=== PATIENT | female | born 1985 | race African-American/Black ===

== ENCOUNTER 2019-09-23 16:25 | Emergency (ER) | payer OTHER ==
[2019-09-23 16:51] VITALS: TEMP 98.4; BMI 25.7
--- NOTE | 2019-09-23 16:56 | PDOC ---
History of Present Illness - General Chief Complaint: Eye Problem Stated Complaint: EYE PROBLEM Time Seen by Provider: 09/23/19 16:55 History Source: Patient Exam Limitations: No Limitations Past History - Travel Traveled outside of the country in the last 30 days: No Close contact w/someone who was outside of country & ill: No - Past Medical History Allergies/Adverse Reactions: Allergies Allergy/AdvReac Type Severity Reaction Status Date / Time No Known Allergies Allergy Verified 09/23/19 16:51 Home Medications: Ambulatory Orders Amoxicillin/Potassium Clav [Augmentin 875-125 Tablet] 1 each PO Q12H 09/23/19 COPD: No Other medical history: DENIES - Immunization History Immunization Up to Date: Yes - Psycho Social/Smoking Cessation Hx Smoking Status: No Smoking History: Current every day smoker Have you smoked in the past 12 months: Yes Number of Cigarettes Smoked Daily: 2 Information on smoking cessation initiated: Yes 'Breaking Loose' booklet given: 10/24/15 Hx Alcohol Use: No Drug/Substance Use Hx: No Substance Use Type: None Hx Substance Use Treatment: No Review of Systems - Review of Systems Able to Perform ROS?: Yes Comments:: 09/23/19 19:14 CONSTITUTIONAL: Absent: fever, chills, diaphoresis, generalized weakness, malaise, loss of appetite HEENT: Present: Left eye swelling, facial pain, nasal congestion. Absent: rhinorrhea, nasal congestion, throat pain, throat swelling, difficulty swallowing, mouth swelling, ear pain, eye pain, visual Changes CARDIOVASCULAR: Absent: chest pain, loss of consciousness, palpitations, irregular heart rate, peripheral edema RESPIRATORY: Absent: cough, shortness of breath, dyspnea with exertion, orthopnea, wheezing, stridor, hemoptysis GASTROINTESTINAL: Absent: abdominal pain, abdominal distension, nausea, vomiting, diarrhea, constipation, melena, hematochezia GENITOURINARY: Absent: dysuria, frequency, urgency, hesitancy, hematuria, flank pain, genital pain MUSCULOSKELETAL: Absent: myalgia, arthralgia, joint swelling SKIN: Absent: rash, itching, pallor HEMATOLOGIC/IMMUNOLOGIC: Absent: easy bleeding, easy bruising, lymphadenopathy, frequent infections ENDOCRINE: Absent: unexplained weight gain, unexplained weight loss, heat intolerance, cold intolerance NEUROLOGIC: Absent: headache, focal weakness or paresthesias, dizziness, unsteady gait, seizure, mental status changes, bladder or bowel incontinence PSYCHIATRIC: Absent: anxiety, depression, suicidal or homicidal ideation, hallucinations. Is the patient limited Kyrgyz proficient: No *Physical Exam - Vital Signs Last Vital Signs Temp Pulse Resp BP Pulse Ox 98.4 F 85 17 127/80 100 09/23/19 16:48 09/23/19 16:48 09/23/19 16:48 09/23/19 16:48 09/23/19 16:48 - Physical Exam 09/23/19 19:14 GENERAL: Well developed, well nourished. Awake and alert. No acute distress. HEAD: Normal with no signs of trauma. EYES: Pupils equal, round and reactive to light, extraocular movements intact, however pt reports pain with movement. Edema to the upper and lower lid extending above the upper lid and below the lower lid. Sclera anicteric, conjunctiva clear. ENT: (+) nasal congestion or rhinorrhea. (+) L maxillary sinus tenderness. Mucous membranes are moist. No tonsillar erythema, exudate or edema. Uvula is midline. No TM bulging, dullness or erythema NECK: Supple. Full ROM. No JVD. Carotid pulses 2+ and symmetric, without bruits. No thyromegaly. No lymphadenopathy. CARDIOVASCULAR: Regular rate and rhythm. No murmurs, rubs, or gallops. Distal pulses are 2+ and symmetric. PULMONARY: No evidence of respiratory distress. Lungs clear to auscultation bilaterally. No wheezing, rales or rhonchi. MUSCULOSKELETAL Normal range of motion at all joints. No bony deformities or tenderness. EXTREMITIES: No cyanosis. No clubbing. No edema. No calf tenderness. SKIN: Warm and dry. Normal capillary refill. No rashes. No jaundice. NEUROLOGICAL: Alert, awake, appropriate. Cranial nerves 2-12 intact. No deficits to light touch and temperature in face, upper extremities and lower extremities. No motor deficits in the in face, upper extremities and lower extremities. Normoreflexic in the upper and lower extremities. Normal speech. Toes are down- going bilaterally. Gait is normal without ataxia. PSYCHIATRIC: Cooperative. Good eye contact. Appropriate mood and affect. ED Treatment Course - LABORATORY CBC & Chemistry Diagram: 09/23/19 18:08 09/23/19 18:08 Medical Decision Making - Medical Decision Making 09/23/19 19:26 The patient is a 34-year-old female with no past medical history who presents to the ER today with left eye swelling and nasal congestion. The patient states her symptoms began approximately 2 days ago. She was seen and evaluated at an urgent care and placed on Augmentin for her symptoms. When she woke up this morning the swelling was worse so she went to the ears nose and throat doctor for evaluation. She states that she was evaluated by her ears nose and throat doctor who told her to come to the ER for orbital cellulitis with a superimposed sinus infection. She states that she has had the sinus infection for approximately 3 months with no improvement. She states that it is painful to move her eye and she feels like she has blurred vision in the left eye. Denies fevers, chills, difficulty breathing, shortness of breath, dizziness, lightheadedness, diplopia. A/P: Orbital cellulitis/sinus infection On exam the left upper and lower eyelids are edematous except with swelling extending past both the upper and lower eyelids. No proptosis noted at this time. Labs, blood cultures ordered. Vancomycin, Zosyn ordered. Decadron given. CT facial bones given to rule out orbital cellulitis/abscess. Anticipate transfer to [facility] as we do not have ophthalmology or ears nose and throat on-call at this time. Patient is amenable to transfer. Reevaluate 09/23/19 19:57 CT facial bones reads: Severe pansinusitis is noted. Focal osseous erosion is seen involving several small areas along the superior and superior medial aspects of the left orbital roof due to left frontal sinus disease. There is an associated small amount of intraorbital extension of inflammatory material into the superior aspect of the left orbit. Mild linear soft tissue stranding is also visualized within the left orbit superiorly. Left periorbital/ preseptal soft tissue edema is noted. There are small areas of focal dehiscence /attenuation involving the left ethmoidal roof. Patient with both severe sinusitis/periorbital cellulitis. Transfer to [facility] initiated. Pending callback. 09/23/19 20:21 Pt accepted ED to ED transfer to Dr. Dukes Case also discussed with ENT Dr. Cagle Discharge - Discharge Information Problems reviewed: Yes Clinical Impression/Diagnosis: Orbital cellulitis on left Sinusitis Qualifiers: Sinusitis location: frontal Chronicity: acute Recurrence: non-recurrent Qualified Code(s): J01.10 - Acute frontal sinusitis, unspecified Disposition: TRANSFER ACUTE CARE/OTHER HOSP - Follow up/Referral Referrals: Tigist Nuno MD [Primary Care Provider] - - Patient Discharge Instructions - Post Discharge Activity - Transfer to Acute Care Facility Receiving Facility Name: [facility] Accepting Physician:: Dr. Dukes
[2019-09-23] MEDS ORDERED: VANCOMYCIN 1 GM in D5W (PRE-DOCKED) 1,000 MG/250 ML IVPB ONE (17:35)
[2019-09-23] MEDS ORDERED: PIPERACILLIN/TAZOB 3.375 GM 3.375 GM in DEXTROSE 5%-WATER - 50 ML IVPB ONE (17:36)
[2019-09-23] MEDS ORDERED: DEXAMETHASONE SOD PHOSPHATE 10 MG/1 ML VIAL IVPUSH ONE (17:37)
[2019-09-23] MEDS ORDERED: ACETAMINOPHEN 1000 MG/100 ML VIAL (NON FORMULARY) IVPB ONE (17:37)
[2019-09-23] MEDS ORDERED: ACETAMINOPHEN INJECTION 100 ML IVPB ONE (17:43)
[2019-09-23] MEDS ORDERED: DEXAMETHASONE SOD PHOSPHATE 10 MG/1 ML VIAL ONE (17:43)
[2019-09-23] MEDS ORDERED: PIPERACILLIN/TAZOB 3.375 GM 3.375 GM/50 ML BAG IVPB ONE (17:44)
[2019-09-23] MEDS ORDERED: VANCOMYCIN 1 GRAM (PRE-DOCKED) 1,000 MG/250 ML BAG IVPB ONE (17:44)
[2019-09-23 19:08] LABS: BASO % 0.7 % (0-2.0); EOS % 5.1 % (0-4.5); HEMATOCRIT 42.6 % (32.4-45.2); HEMOGLOBIN 13.8 GM/dL (10.7-15.3); LYMPH % 21.3 % (8-40); MCH 32.3 pg (25.7-33.7); MCHC 32.5 g/dl (32.0-36.0); MEAN CELL VOLUME 99.2 fl (80-96); MONO % 4.2 % (3.8-10.2); NEUT % 68.7 % (42.8-82.8); PLATELET COUNT 219 K/MM3 (134-434); RBC 4.29 M/mm3 (3.60-5.2); RDW 12.8 % (11.6-15.6); WHITE BLOOD COUNT 8.7 K/mm3 (4.0-10.0)
[2019-09-23 19:26] LABS: PROTHROMBIN TIME (PATIENT) 11.8 SEC (9.7-13.0)
[2019-09-23 19:44] LABS: ALBUMIN 3.9 g/dl (3.4-5.0); BILIRUBIN,TOTAL 0.7 mg/dL (0.2-1); CALCIUM 9.3 mg/dL (8.5-10.1); CREATININE 0.6 mg/dL (0.55-1.3); TOT PROT 7.6 g/dl (6.4-8.2)
[2019-09-23 23:02] VITALS: BP 123/76; PULSE 73
--- NOTE | 2019-09-24 14:00 | EKG ---
Test Reason : Blood Pressure : / mmHG Vent. Rate : 078 BPM Atrial Rate : 078 BPM P-R Int : 150 ms QRS Dur : 072 ms QT Int : 366 ms P-R-T Axes : 059 078 065 degrees QTc Int : 417 ms NORMAL SINUS RHYTHM POSSIBLE LEFT ATRIAL ENLARGEMENT BORDERLINE ECG WHEN COMPARED WITH ECG OF 11-AUG-2012 15:38, NO SIGNIFICANT CHANGE WAS FOUND Confirmed by DEVON ALICEA MD ([id number]) on 09/24/2019 1:59:58 PM Referred By: Confirmed By:DEVON ALICEA MD
== END 2019-09-23 23:02 | disposition short-term general hospital (02) ==
LOC: JER 16:25
PROC: 3E03329 Introduction of Other Anti-infective into Peripheral Vein, Percutaneous Approach (ICD-10-PCS; principal; 2019-09-23)
PROC: 3E033NZ Introduction of Analgesics, Hypnotics, Sedatives into Peripheral Vein, Percutaneous Approach (ICD-10-PCS; 2019-09-23)
DX: J01.10 Acute frontal sinusitis, unspecified (principal); F17.210 Nicotine dependence, cigarettes, uncomplicated
CPT/HCPCS: 36415; 70486-TC; 80053; 85025; 85610; 87040; 93005; 93010; 99285-25; J0131; J1100

== ENCOUNTER 2021-07-21 08:30 | Emergency (ER) | payer OTHER ==
[2021-07-21 08:56] VITALS: BP 103/70; PULSE 91; TEMP 98.6; BMI 26.6
[2021-07-24 17:08] LABS: SARS-CoV-2 NAA Detected (Not Detected)
== END 2021-07-21 10:00 | disposition home or self-care (01) ==
LOC: JER 08:30
DX: J11.1 Influenza due to unidentified influenza virus with other respiratory manifestations (principal)
CPT/HCPCS: 99283-25; C9803; U0003; U0005

== ENCOUNTER 2023-08-05 06:33 | Emergency (ER) | payer OTHER ==
[2023-08-05 06:42] VITALS: BMI 28.0
[2023-08-05] MEDS ORDERED: KETOROLAC TROMETHAMINE 30 MG/1 ML VIAL IM ONE (08:01)
[2023-08-05] MEDS ORDERED: LIDOCAINE 5% TOPICAL PATCH TP ONE (08:02)
[2023-08-05] MEDS ORDERED: KETOROLAC TROMETHAMINE 30 MG/1 ML VIAL ONE (08:22)
[2023-08-05] MEDS ORDERED: LIDOCAINE 4% PATCH TP ONE ×2 (08:22→08:24)
[2023-08-05 09:01] VITALS: BP 91/65; PULSE 79; RESP 18; TEMP 99.8
[2023-08-05] MEDS ORDERED: LIDOCAINE PATCH REMOVAL MC SCH ×2 (22:00)
== END 2023-08-05 09:05 | disposition home or self-care (01) ==
LOC: JER 06:33
PROC: 3E0233Z Introduction of Anti-inflammatory into Muscle, Percutaneous Approach (ICD-10-PCS; principal; 2023-08-05)
DX: M25.511 Pain in right shoulder (principal)
CPT/HCPCS: 73030-TC-RT-FY; 99284-25

== ENCOUNTER 2024-01-30 19:01 | Emergency (ER) | payer OTHER ==
[2024-01-30 19:10] VITALS: BMI 28.2
[2024-01-30 20:26] LABS: HEMATOCRIT 38.3 % (32.4-45.2); HEMOGLOBIN 12.7 GM/dL (10.7-15.3); MCH 32.3 pg (25.7-33.7); MCHC 33.1 g/dl (32.0-36.0); MEAN CELL VOLUME 97.5 fl (80-96); MEAN PLT VOLUME 8.6 fl (7.5-11.1); PLATELET COUNT 248 10^3/uL (134-434); RBC 3.93 M/mm3 (3.60-5.2); RDW 13.7 % (11.6-15.6); WHITE BLOOD COUNT 9.4 K/mm3 (4.0-10.0)
[2024-01-30] MEDS ORDERED: ACETAMINOPHEN INJECTION 100 ML IVPB ONE (20:29)
[2024-01-30 20:33] LABS: INR 0.94 (0.83-1.09); PROTHROMBIN TIME (PATIENT) 10.6 SEC (9.7-13.0)
[2024-01-30] MEDS: SODIUM CHLORIDE 0.9% 1000 ML INFUS.BAG IV ONE (20:35)
[2024-01-30 20:36] LABS: ACTIVATED PTT 29.7 SECONDS (25.2-36.5)
[2024-01-30] MEDS: ACETAMINOPHEN 1000 MG/100 ML BAG IVPB ONE (20:36)
[2024-01-30 21:33] LABS: POTASSIUM 4.9 mmol/L (3.5-5.1)
[2024-01-30 21:35] LABS: ALBUMIN 3.3 g/dl (3.4-5.0); BLOOD UREA NITROGEN 7.4 mg/dL (7-18); CALCIUM 8.6 mg/dL (8.5-10.1)
[2024-01-30 21:36] LABS: ANISOCYTOSIS 0; MACROCYTOSIS 0
[2024-01-30 21:38] LABS: CREATININE 0.7 mg/dL (0.55-1.3)
[2024-01-30 21:41] LABS: BILIRUBIN,TOTAL 0.4 mg/dL (0.2-1); TOT PROT 7.3 g/dl (6.4-8.2)
[2024-01-30 23:47] VITALS: BP 125/82; PULSE 75; RESP 16; TEMP 98.6
== END 2024-01-31 00:30 | disposition short-term general hospital (02) ==
LOC: JER 19:01
PROC: 3E033NZ Introduction of Analgesics, Hypnotics, Sedatives into Peripheral Vein, Percutaneous Approach (ICD-10-PCS; principal; 2024-01-30)
DX: H60.02 Abscess of left external ear (principal); R22.1 Localized swelling, mass and lump, neck; R00.0 Tachycardia, unspecified; Z20.822 Contact with and (suspected) exposure to COVID-19
CPT/HCPCS: 0241U-QW; 36415; 70487-TC; 80053; 84703; 85025; 85610; 85730; 87040; 99285-25; J0131; Q9967

== ENCOUNTER 2024-05-06 12:03 | Emergency (ER) | payer OTHER ==
[2024-05-06 12:13] VITALS: BP 127/60; PULSE 83; RESP 20; TEMP 97.7; BMI 28.0
[2024-05-06] MEDS ORDERED: SODIUM BICARBONATE 8.4% 50 MEQ/50 ML DISP.SYRIN ONE (14:32)
== END 2024-05-06 16:30 | disposition home or self-care (01) ==
LOC: JER 12:03
PROC: 0H98X0Z Drainage of Buttock Skin with Drainage Device, External Approach (ICD-10-PCS; principal; 2024-05-06)
DX: L02.31 Cutaneous abscess of buttock (principal)
CPT/HCPCS: 82962; 99283-25